=== PATIENT | male | born 1990 | race Two or more races ===

== ENCOUNTER 2019-11-08 17:35 | Emergency (ER) | payer OTHER ==
[~2019-11-08] VITALS: Ht 172.7 cm; Wt 78.9 kg
[2019-11-08 18:16] VITALS: BP 146/102
[2019-11-08] MEDS ORDERED: LORATADINE 10 MG TAB ONE (18:54)
[2019-11-08] MEDS ORDERED: LORATADINE 10 MG TAB PO ONE (19:00)
[2019-11-08] MEDS ORDERED: methylPREDNISolone SOD SUCC 125 MG/2 ML VL IM ONE (20:15)
== END 2019-11-08 23:25 | disposition home or self-care (01) ==
LOC: ER 17:35 → EEVIPCON 17:35 → ER 23:25
DX: T78.40XA Allergy, unspecified, initial encounter (principal); X58.XXXA Exposure to other specified factors, initial encounter
CPT/HCPCS: 96372; 99283; J2930